=== PATIENT | male | born 1985 | race Caucasian/White ===

== ENCOUNTER 2019-06-21 02:29 | Emergency (ER) | payer BC, MEDICAID ==
[~2019-06-21] VITALS: Ht 175.3 cm; Wt 69.4 kg
--- NOTE | 2019-06-21 02:32 | NUR ---
Patient to [facility] chair to gown for evaluation. Side rails up.
[2019-06-21 02:33] VITALS: BP_SYST 143
--- NOTE | 2019-06-21 03:50 | NUR ---
ER at bedside examining patient.
--- NOTE | 2019-06-21 03:55 | NUR ---
patient brought in by [facility] for medical clearnace. patient has a history of hiv. patient has no current signs of distress. patient has a large skin abnormality on the top of the head. patients lungs are CTA. patient refused any other exam at this time. no other complaint or injury.
--- NOTE | 2019-06-21 03:56 | NUR ---
ER at bedside examining patient.
[2019-06-21 04:15] VITALS: BP_SYST 140
--- NOTE | 2019-06-21 04:20 | NUR ---
Patient given written and verbal discharge instructions and verbalizes understanding. ER MD discussed with patient the results and treatment provided. Patient in stable condition. ID arm band removed. IV catheter removed intact and dressing applied, no active bleeding. Rx of zero given. Patient educated on pain management and to follow up with PMD. Pain Scale 0/10. Opportunity for questions provided and answered. Medication side effect fact sheet provided.
== END 2019-06-21 04:20 ==
LOC: SED 02:29
DX: L98.8 Other specified disorders of the skin and subcutaneous tissue (principal); Z88.0 Allergy status to penicillin
CPT/HCPCS: 99283

== ENCOUNTER 2023-06-22 16:31 | Inpatient (IN) | payer MEDICAID ==
[~2023-06-22] VITALS: Ht 175.3 cm; Wt 67.6 kg
[~2023-06-22 16:31] MED LIST: ACET325T PO; ACYC400T19 PO; BICT1TAB3 PO; DOXY100T2 PO; HYDR-3919 PO; HYDR-3927 PO
[2023-06-22 16:35] VITALS: BP_SYST 113; PULSE 94; RESP 18; TEMP 98.1; O2SAT 100
[2023-06-22 18:02] LABS: BASOPHILS % (AUTO) 0.3 % (0.0-2.0); EOSINOPHILS # (AUTO) 0.2 K/uL (0.0-0.4); EOSINOPHILS % (AUTO) 2.7 % (0.0-4.0); HEMATOCRIT 26.3 % (36-54); LYMPHOCYTES # (AUTO) 1.7 K/uL (1.0-5.5); LYMPHOCYTES % (AUTO) 24.6 % (20.5-51.5); MEAN CORPUSCULAR HEMOGLOBIN 31 pg (27-31); MEAN CORPUSCULAR HGB CONC 34 % (32-36); MEAN CORPUSCULAR VOLUME 90 fL (79.0-98.0); MONOCYTES # (AUTO) 0.6 K/uL (0.0-1.0); MONOCYTES % (AUTO) 8.2 % (1.7-9.3); NEUTROPHILS # (AUTO) 4.5 K/uL (1.8-7.7); NEUTROPHILS % (AUTO) 64.2 % (40.0-70.0); PLATELET COUNT (AUTO) 321 K/uL (130-430); RED BLOOD CELL COUNT(AUTO) 2.93 MIL/uL (4.2-6.2); RED CELL DISTRIBUTION WIDTH 16.6 % (9.0-15.0)
[2023-06-22 18:26] LABS: ALBUMIN 2.9 g/dL (3.4-4.8); CALCIUM 8.9 mg/dL (8.4-11.0); CREATININE 0.76 mg/dL (0.55-1.30); POTASSIUM 3.7 mmol/L (3.5-5.1); TOTAL BILIRUBIN 0.2 mg/dL (0.0-1.0); TOTAL PROTEIN, SERUM 7.8 g/dL (6.4-8.3)
[2023-06-22] MEDS ORDERED: NACL 0.9% 1,000 ML IV ONE (20:00)
[2023-06-22] MEDS ORDERED: KETOROLAC TROMETHAMINE 30 MG VIAL IVP ONE (20:00)
[2023-06-22 20:15] LABS: PROTHROMBIN TIME 10.1 SECS (9.5-12.5)
[2023-06-22] MEDS ORDERED: VANCOMYCIN HCL 1,000 MG in NS 250 ML IV ONE (20:15)
[2023-06-22] MEDS ORDERED: BACITRACIN ZINC 15 GM TOPICAL OINTMENT TP ONE (20:30)
[2023-06-22] MEDS ORDERED: VANCOMYCIN HCL 1000 MG/VIAL IV ONE (20:37)
[2023-06-22] MEDS ORDERED: BACITRACIN 1 GM OINT TP ONE ×2 (20:37→21:15)
[2023-06-22 21:25] LABS: BILIRUBIN,URINE NEGATIVE (NEGATIVE); BLOOD, URINE NEGATIVE (NEGATIVE); CLARITY/URINE CLEAR (CLEAR); COLOR,URINE YELLOW (YELLOW); GLUCOSE,URINE NEGATIVE (NEGATIVE); KETONES,URINE NEGATIVE (NEGATIVE); LEUKOCYTE ESTERASE ,URINE NEGATIVE (NEGATIVE); NITRITE, URINE NEGATIVE (NEGATIVE); PROTEIN URINE TRACE (NEGATIVE); UROBILINOGEN,URINE 0.2 (0.2-1.0)
[2023-06-22 21:52] LABS: HYALINE CASTS, URINE 4 /LPF (None Seen)
[2023-06-22 21:53] LABS: BACTERIA,URINE RARE /HPF (None Seen)
[2023-06-22] MEDS ORDERED: SULF1TAB47 PO (22:06)
[2023-06-22] MEDS ORDERED: BICT1TAB PO (22:06)
[2023-06-22 23:44] VITALS: BP_SYST 111; PULSE 77; RESP 20; TEMP 97.4
[2023-06-22 23:51] VITALS: BP_SYST 111; PULSE 77; RESP 20; TEMP 97.8; O2SAT 97
[2023-06-23 00:17] VITALS: O2SAT 97
[2023-06-23 08:00] VITALS: BP_SYST 115; PULSE 101; RESP 18; TEMP 99.5; O2SAT 98
[2023-06-23] MEDS ORDERED: NALOXONE HCL 0.4 MG/ML AMP (NARCAN) IVP PRN ×2 (10:30)
[2023-06-23] MEDS ORDERED: ONDANSETRON HCL 4 MG/2 ML VIAL IVP PRN (10:30)
[2023-06-23] MEDS ORDERED: HYDROcodone/ACETAMIN 5-325 MG TAB (NORCO/ VICODIN) PO PRN ×2 (10:30)
[2023-06-23] MEDS ORDERED: ACETAMINOPHEN 325 MG TABLET PO PRN (10:30)
[2023-06-23] MEDS ORDERED: LORazepam 2 MG/ML VIAL IVP PRN (10:30)
[2023-06-23 11:00] VITALS: TEMP 99.5
[2023-06-23 12:00] VITALS: BP_SYST 113; PULSE 92; RESP 16; TEMP 98.5; O2SAT 99
[2023-06-23 12:04] LABS: BASOPHILS % (AUTO) 0.4 % (0.0-2.0); EOSINOPHILS # (AUTO) 0.3 K/uL (0.0-0.4); HEMATOCRIT 24.9 % (36-54); HEMOGLOBIN 8.4 g/dL (14.0-18.0); LYMPHOCYTES # (AUTO) 1.5 K/uL (1.0-5.5); LYMPHOCYTES % (AUTO) 27.6 % (20.5-51.5); MEAN CORPUSCULAR HEMOGLOBIN 31 pg (27-31); MEAN CORPUSCULAR HGB CONC 34 % (32-36); MEAN CORPUSCULAR VOLUME 90 fL (79.0-98.0); MONOCYTES # (AUTO) 0.4 K/uL (0.0-1.0); MONOCYTES % (AUTO) 8.5 % (1.7-9.3); NEUTROPHILS % (AUTO) 57.5 % (40.0-70.0); PLATELET COUNT (AUTO) 294 K/uL (130-430); RED BLOOD CELL COUNT(AUTO) 2.77 MIL/uL (4.2-6.2); WHITE BLOOD COUNT (AUTO) 5.3 K/uL (4.8-10.8)
[2023-06-23 12:52] LABS: CALCIUM 8.3 mg/dL (8.4-11.0); CREATININE 0.71 mg/dL (0.55-1.30); POTASSIUM 3.9 mmol/L (3.5-5.1)
[2023-06-23] MEDS ORDERED: SULFAMETHOXAZOLE/TRIMETHOPR DS 1 TABLET PO ONE (13:00)
[2023-06-23] MEDS: ACYCLOVIR 400 MG TABLET PO SCH ×2 (13:03→22:03)
[2023-06-23 16:00] VITALS: BP_SYST 110; PULSE 112; RESP 16; TEMP 98.5
[2023-06-23] MEDS: NORMAL SALINE 5 ML DISP.SYRIN IVF SCH ×2 (18:11→22:03)
[2023-06-23 20:00] VITALS: BP_SYST 121; PULSE 93; RESP 20; TEMP 98.7; O2SAT 98
[2023-06-23] MEDS ORDERED: DOXYCYCLINE HYCLATE 100 MG CAPSULE PO SCH (21:00)
[2023-06-23] MEDS: DOXYCYCLINE HYCLATE 100 MG in D5W 100 ML IV SCH (21:36)
[2023-06-24 00:52] VITALS: BP_SYST 120; PULSE 90; RESP 18; TEMP 99.1; O2SAT 98
[2023-06-24 05:39] LABS: BASOPHILS % (AUTO) 0.3 % (0.0-2.0); EOSINOPHILS # (AUTO) 0.4 K/uL (0.0-0.4); EOSINOPHILS % (AUTO) 6.8 % (0.0-4.0); HEMATOCRIT 25.1 % (36-54); HEMOGLOBIN 8.5 g/dL (14.0-18.0); LYMPHOCYTES # (AUTO) 1.5 K/uL (1.0-5.5); LYMPHOCYTES % (AUTO) 28.9 % (20.5-51.5); MEAN CORPUSCULAR HEMOGLOBIN 30 pg (27-31); MEAN CORPUSCULAR HGB CONC 34 % (32-36); MEAN CORPUSCULAR VOLUME 89 fL (79.0-98.0); MONOCYTES # (AUTO) 0.5 K/uL (0.0-1.0); MONOCYTES % (AUTO) 9.4 % (1.7-9.3); NEUTROPHILS # (AUTO) 2.8 K/uL (1.8-7.7); NEUTROPHILS % (AUTO) 54.6 % (40.0-70.0); PLATELET COUNT (AUTO) 300 K/uL (130-430); RED BLOOD CELL COUNT(AUTO) 2.81 MIL/uL (4.2-6.2); RED CELL DISTRIBUTION WIDTH 17.1 % (9.0-15.0); WHITE BLOOD COUNT (AUTO) 5.2 K/uL (4.8-10.8)
[2023-06-24] MEDS: ACYCLOVIR 400 MG TABLET PO SCH ×3 (06:27→21:29)
[2023-06-24] MEDS: NORMAL SALINE 5 ML DISP.SYRIN IVF SCH ×3 (06:28→21:29)
[2023-06-24 06:42] LABS: ALBUMIN 2.7 g/dL (3.4-4.8); CALCIUM 8.6 mg/dL (8.4-11.0); CREATININE 0.83 mg/dL (0.55-1.30); PHOSPHORUS 3.3 mg/dL (2.7-4.5); POTASSIUM 4.4 mmol/L (3.5-5.1); TOTAL BILIRUBIN 0.2 mg/dL (0.0-1.0)
[2023-06-24 08:19] VITALS: BP_SYST 122; PULSE 85; RESP 18; TEMP 98
[2023-06-24] MEDS: SULFAMETHOXAZOLE/TRIMETHOPR DS 1 TABLET PO SCH (08:57)
[2023-06-24] MEDS: DOXYCYCLINE HYCLATE 100 MG in D5W 100 ML IV SCH ×2 (08:58→21:28)
[2023-06-24 17:00] VITALS: BP_SYST 120; PULSE 82; RESP 17; TEMP 97; O2SAT 97
[2023-06-24 20:00] VITALS: BP_SYST 109; PULSE 90; RESP 18; TEMP 99.5; O2SAT 97
[2023-06-25 00:34] VITALS: BP_SYST 115; PULSE 77; RESP 18; TEMP 97.3; O2SAT 99
[2023-06-25] MEDS: ACYCLOVIR 400 MG TABLET PO SCH ×3 (06:38→21:39)
[2023-06-25] MEDS: NORMAL SALINE 5 ML DISP.SYRIN IVF SCH ×3 (06:38→21:38)
[2023-06-25 08:00] VITALS: BP_SYST 102; PULSE 82; RESP 19; TEMP 98.6; O2SAT 97
[2023-06-25] MEDS: DOXYCYCLINE HYCLATE 100 MG in D5W 100 ML IV SCH ×2 (10:07→21:38)
[2023-06-25] MEDS: SULFAMETHOXAZOLE/TRIMETHOPR DS 1 TABLET PO SCH (10:11)
[2023-06-25 12:20] LABS: BASOPHILS % (AUTO) 0.3 % (0.0-2.0); EOSINOPHILS # (AUTO) 0.3 K/uL (0.0-0.4); EOSINOPHILS % (AUTO) 5.8 % (0.0-4.0); HEMATOCRIT 29.7 % (36-54); HEMOGLOBIN 9.6 g/dL (14.0-18.0); LYMPHOCYTES % (AUTO) 35.1 % (20.5-51.5); MEAN CORPUSCULAR HEMOGLOBIN 29 pg (27-31); MEAN CORPUSCULAR HGB CONC 32 % (32-36); MEAN CORPUSCULAR VOLUME 90 fL (79.0-98.0); MONOCYTES # (AUTO) 0.5 K/uL (0.0-1.0); MONOCYTES % (AUTO) 9.2 % (1.7-9.3); NEUTROPHILS # (AUTO) 2.9 K/uL (1.8-7.7); NEUTROPHILS % (AUTO) 49.6 % (40.0-70.0); PLATELET COUNT (AUTO) 345 K/uL (130-430); RED BLOOD CELL COUNT(AUTO) 3.29 MIL/uL (4.2-6.2); RED CELL DISTRIBUTION WIDTH 16.7 % (9.0-15.0); WHITE BLOOD COUNT (AUTO) 5.8 K/uL (4.8-10.8)
[2023-06-25 12:30] VITALS: BP_SYST 110; PULSE 89; RESP 17; TEMP 98.2; O2SAT 98
[2023-06-25 12:35] LABS: CREATININE 0.88 mg/dL (0.55-1.30); POTASSIUM 4.5 mmol/L (3.5-5.1)
[2023-06-25 14:06] LABS: HEPATITIS B SURFACE AG Negative (Negative); HEPATITIS C VIRUS AB Non Reactive (Non Reactive)
[2023-06-25 16:32] VITALS: BP_SYST 112; PULSE 88; RESP 17; TEMP 97; O2SAT 99
[2023-06-25 19:00] VITALS: O2SAT 97
[2023-06-25 20:00] VITALS: BP_SYST 103; PULSE 97; RESP 18; TEMP 97.9; O2SAT 97
[2023-06-25] MEDS: SILVER SULFADIAZINE 1%, 400 GM 400 GM CREAM.GM. TP SCH (21:37)
[2023-06-26] VITALS: BP_SYST 118; PULSE 82; RESP 19; TEMP 97.7; O2SAT 98
[2023-06-26] MEDS: NORMAL SALINE 5 ML DISP.SYRIN IVF SCH ×3 (06:13→21:36)
[2023-06-26] MEDS: ACYCLOVIR 400 MG TABLET PO SCH ×3 (06:14→21:35)
[2023-06-26 08:10] VITALS: BP_SYST 102; PULSE 98; RESP 18; TEMP 97.4; O2SAT 98
[2023-06-26] MEDS: DOXYCYCLINE HYCLATE 100 MG in D5W 100 ML IV SCH ×2 (09:00→21:35)
[2023-06-26] MEDS: SULFAMETHOXAZOLE/TRIMETHOPR DS 1 TABLET PO SCH (09:00)
[2023-06-26] MEDS: SILVER SULFADIAZINE 1%, 400 GM 400 GM CREAM.GM. TP SCH ×2 (09:00→21:37)
[2023-06-26 12:00] VITALS: BP_SYST 117; PULSE 107; RESP 16; TEMP 98.8; O2SAT 98
[2023-06-26 19:00] VITALS: O2SAT 97
[2023-06-27 01:53] VITALS: BP_SYST 111; PULSE 96; RESP 18; TEMP 99.1; O2SAT 97
[2023-06-27] MEDS: ACYCLOVIR 400 MG TABLET PO SCH ×4 (05:54→21:54)
[2023-06-27] MEDS: NORMAL SALINE 5 ML DISP.SYRIN IVF SCH ×3 (05:55→21:55)
[2023-06-27 08:00] VITALS: BP_SYST 96; PULSE 76; RESP 18; TEMP 98.1; O2SAT 100; O2SAT 99
[2023-06-27] MEDS ORDERED: DOXY100T2 PO (09:53)
[2023-06-27] MEDS ORDERED: SULF1TAB48 PO (09:53)
[2023-06-27] MEDS: DOXYCYCLINE HYCLATE 100 MG in D5W 100 ML IV SCH ×2 (10:15→21:55)
[2023-06-27] MEDS: SILVER SULFADIAZINE 1%, 400 GM 400 GM CREAM.GM. TP SCH ×2 (10:16→21:55)
[2023-06-27] MEDS: SULFAMETHOXAZOLE/TRIMETHOPR DS 1 TABLET PO SCH (10:16)
[2023-06-27 11:21] LABS: BASOPHILS % (AUTO) 0.5 % (0.0-2.0); EOSINOPHILS # (AUTO) 0.3 K/uL (0.0-0.4); HEMATOCRIT 27.2 % (36-54); LYMPHOCYTES # (AUTO) 1.8 K/uL (1.0-5.5); LYMPHOCYTES % (AUTO) 30.8 % (20.5-51.5); MEAN CORPUSCULAR HEMOGLOBIN 30 pg (27-31); MEAN CORPUSCULAR HGB CONC 33 % (32-36); MEAN CORPUSCULAR VOLUME 90 fL (79.0-98.0); MONOCYTES # (AUTO) 0.5 K/uL (0.0-1.0); MONOCYTES % (AUTO) 9.2 % (1.7-9.3); NEUTROPHILS # (AUTO) 3.1 K/uL (1.8-7.7); NEUTROPHILS % (AUTO) 54.5 % (40.0-70.0); PLATELET COUNT (AUTO) 320 K/uL (130-430); RED BLOOD CELL COUNT(AUTO) 3.03 MIL/uL (4.2-6.2); RED CELL DISTRIBUTION WIDTH 16.8 % (9.0-15.0); WHITE BLOOD COUNT (AUTO) 5.7 K/uL (4.8-10.8)
[2023-06-27 11:39] LABS: CALCIUM 9.1 mg/dL (8.4-11.0); CREATININE 0.92 mg/dL (0.55-1.30); POTASSIUM 4.8 mmol/L (3.5-5.1); TOTAL BILIRUBIN 0.2 mg/dL (0.0-1.0); TOTAL PROTEIN, SERUM 7.6 g/dL (6.4-8.3)
[2023-06-27 12:00] VITALS: BP_SYST 100; PULSE 76; RESP 18; TEMP 97.6; O2SAT 100
[2023-06-27 16:00] VITALS: BP_SYST 99; PULSE 70; RESP 19; TEMP 97.5; O2SAT 99
[2023-06-27 18:06] LABS: QUANTIFERON TB GOLD Negative (Negative)
[2023-06-27 20:00] VITALS: BP_SYST 101; PULSE 110; RESP 18; TEMP 99.3; O2SAT 97
[2023-06-27 20:30] VITALS: O2SAT 97
[2023-06-28] VITALS (7 sets, daily range): BP systolic 97–112; PULSE 93–100; RESP 16–18; TEMP 97.3–99.3; O2SAT 98–99
[2023-06-28 05:35] LABS: ERYTHROCYTE SEDIMENTATION RATE 23 MM/HR (0-15)
[2023-06-28 05:47] LABS: BASOPHILS % (AUTO) 0.6 % (0.0-2.0); EOSINOPHILS # (AUTO) 0.2 K/uL (0.0-0.4); HEMATOCRIT 26.8 % (36-54); HEMOGLOBIN 8.8 g/dL (14.0-18.0); LYMPHOCYTES # (AUTO) 1.8 K/uL (1.0-5.5); LYMPHOCYTES % (AUTO) 36.5 % (20.5-51.5); MEAN CORPUSCULAR HEMOGLOBIN 30 pg (27-31); MEAN CORPUSCULAR HGB CONC 33 % (32-36); MEAN CORPUSCULAR VOLUME 90 fL (79.0-98.0); MONOCYTES # (AUTO) 0.6 K/uL (0.0-1.0); MONOCYTES % (AUTO) 11.5 % (1.7-9.3); NEUTROPHILS # (AUTO) 2.3 K/uL (1.8-7.7); NEUTROPHILS % (AUTO) 47.4 % (40.0-70.0); PLATELET COUNT (AUTO) 295 K/uL (130-430); RED BLOOD CELL COUNT(AUTO) 2.97 MIL/uL (4.2-6.2); RED CELL DISTRIBUTION WIDTH 16.8 % (9.0-15.0); WHITE BLOOD COUNT (AUTO) 4.8 K/uL (4.8-10.8)
[2023-06-28] MEDS: NORMAL SALINE 5 ML DISP.SYRIN IVF SCH ×3 (05:55→21:06)
[2023-06-28] MEDS: ACYCLOVIR 400 MG TABLET PO SCH ×3 (05:55→21:04)
[2023-06-28 05:57] LABS: CALCIUM 8.8 mg/dL (8.4-11.0); CREATININE 0.97 mg/dL (0.55-1.30); POTASSIUM 4.2 mmol/L (3.5-5.1)
[2023-06-28] MEDS: SILVER SULFADIAZINE 1%, 400 GM 400 GM CREAM.GM. TP SCH ×2 (10:25→21:07)
[2023-06-28] MEDS: SULFAMETHOXAZOLE/TRIMETHOPR DS 1 TABLET PO SCH (10:26)
[2023-06-28] MEDS: DOXYCYCLINE HYCLATE 100 MG in D5W 100 ML IV SCH ×2 (10:27→21:05)
[2023-06-29 00:05] VITALS: BP_SYST 110; PULSE 94; RESP 18; TEMP 97.8; O2SAT 98
[2023-06-29] MEDS: ACYCLOVIR 400 MG TABLET PO SCH (05:14)
[2023-06-29] MEDS: NORMAL SALINE 5 ML DISP.SYRIN IVF SCH (05:14)
[2023-06-29 06:15] LABS: ERYTHROCYTE SEDIMENTATION RATE 26 MM/HR (0-15)
[2023-06-29 06:29] LABS: BASOPHILS % (AUTO) 0.6 % (0.0-2.0); EOSINOPHILS # (AUTO) 0.2 K/uL (0.0-0.4); EOSINOPHILS % (AUTO) 5.2 % (0.0-4.0); HEMATOCRIT 26.4 % (36-54); HEMOGLOBIN 8.6 g/dL (14.0-18.0); LYMPHOCYTES # (AUTO) 1.6 K/uL (1.0-5.5); LYMPHOCYTES % (AUTO) 39.3 % (20.5-51.5); MEAN CORPUSCULAR HEMOGLOBIN 30 pg (27-31); MEAN CORPUSCULAR HGB CONC 33 % (32-36); MEAN CORPUSCULAR VOLUME 90 fL (79.0-98.0); MONOCYTES # (AUTO) 0.5 K/uL (0.0-1.0); NEUTROPHILS # (AUTO) 1.8 K/uL (1.8-7.7); NEUTROPHILS % (AUTO) 43.9 % (40.0-70.0); PLATELET COUNT (AUTO) 290 K/uL (130-430); RED BLOOD CELL COUNT(AUTO) 2.92 MIL/uL (4.2-6.2); RED CELL DISTRIBUTION WIDTH 16.9 % (9.0-15.0); WHITE BLOOD COUNT (AUTO) 4.1 K/uL (4.8-10.8)
[2023-06-29 06:58] LABS: ALBUMIN 2.7 g/dL (3.4-4.8); CALCIUM 8.6 mg/dL (8.4-11.0); CREATININE 0.88 mg/dL (0.55-1.30); POTASSIUM 4.1 mmol/L (3.5-5.1); TOTAL BILIRUBIN 0.2 mg/dL (0.0-1.0); TOTAL PROTEIN, SERUM 6.9 g/dL (6.4-8.3)
[2023-06-29 07:00] VITALS: BP_SYST 107; PULSE 99; RESP 16; TEMP 96.8; O2SAT 97
[2023-06-29 09:00] VITALS: BP_SYST 107; PULSE 99; RESP 16; TEMP 96.8; O2SAT 97
[2023-06-29] MEDS: DOXYCYCLINE HYCLATE 100 MG in D5W 100 ML IV SCH (09:14)
[2023-06-29] MEDS: SULFAMETHOXAZOLE/TRIMETHOPR DS 1 TABLET PO SCH (10:57)
[2023-06-29] MEDS: SILVER SULFADIAZINE 1%, 400 GM 400 GM CREAM.GM. TP SCH (10:58)
[2023-06-29] MEDS ORDERED: SULF1TAB47 PO (11:11)
[2023-06-29] MEDS ORDERED: BICT1TAB PO (11:11)
[2023-06-29 14:57] VITALS: BP_SYST 112; PULSE 85; RESP 18; TEMP 98.4; O2SAT 99
== END 2023-06-29 15:11 | DRG 383 ==
LOC: SED 16:31 → SMU 21:15
PROVIDERS: ADMIT Preventive Medicine Preventive Medicine/Occupational Environmental Medicine; ATTEND Preventive Medicine Preventive Medicine/Occupational Environmental Medicine
DX: L02.412 Cutaneous abscess of left axilla (principal); E44.1 Mild protein-calorie malnutrition; L02.211 Cutaneous abscess of abdominal wall; E88.09 Other disorders of plasma-protein metabolism, not elsewhere classified; D64.9 Anemia, unspecified; S31.109A Unspecified open wound of abdominal wall, unspecified quadrant without penetration into peritoneal cavity, initial encounter; D72.819 Decreased white blood cell count, unspecified; I10 Essential (primary) hypertension; L73.2 Hidradenitis suppurativa; J44.9 Chronic obstructive pulmonary disease, unspecified; R73.9 Hyperglycemia, unspecified; B95.62 Methicillin resistant Staphylococcus aureus infection as the cause of diseases classified elsewhere; X58.XXXA Exposure to other specified factors, initial encounter; Y93.89 Activity, other specified; Z59.00 Homelessness unspecified; Z86.14 Personal history of Methicillin resistant Staphylococcus aureus infection; Y92.89 Other specified places as the place of occurrence of the external cause; Y99.8 Other external cause status; Z68.22 Body mass index [BMI] 22.0-22.9, adult; Z21 Asymptomatic human immunodeficiency virus [HIV] infection status
CPT/HCPCS: 36415; 71045; 80048; 80053; 81000; 83605; 83690; 83735; 84100; 84484; 85025; 85610-TC; 85651-TC; 85730-TC; 86480; 86592; 86780; 86803; 87040; 87070-TC; 87075-TC; 87081; 87086; 87186-TC; 87340; 87536; 93005; 96361; 96365; 96375; 99285; J1885; J3370; J3490; J7060

== ENCOUNTER 2023-08-31 12:53 | Inpatient (IN) | payer MEDICAID ==
[~2023-08-31] VITALS: Ht 175.3 cm; Wt 62.1 kg
[~2023-08-31 12:53] MED LIST changes: +BICT1TAB PO; -BICT1TAB3 PO; +SULF1TAB47 PO; +SULF1TAB48 PO
[2023-08-31 12:57] VITALS: BP_SYST 110; BP_SYST 123; PULSE 113; PULSE 137; RESP 26; TEMP 105.2; TEMP 98.3; O2SAT 98
[2023-08-31] MEDS ORDERED: levETIRAcetam 1,000 MG IV BAG 100 ML IV ONE (13:15)
[2023-08-31] MEDS ORDERED: NS 1000 ML IV.SOLN IV ONE (13:15)
[2023-08-31] MEDS ORDERED: ACETAMINOPHEN 500 MG TABLET PO ONE (13:15)
[2023-08-31 13:31] LABS: BASOPHILS % (AUTO) 0.2 % (0.0-2.0); HEMATOCRIT 28.1 % (36-54); HEMOGLOBIN 9.1 g/dL (14.0-18.0); LYMPHOCYTES # (AUTO) 1.4 K/uL (1.0-5.5); LYMPHOCYTES % (AUTO) 11.9 % (20.5-51.5); MEAN CORPUSCULAR HEMOGLOBIN 29 pg (27-31); MEAN CORPUSCULAR HGB CONC 32 % (32-36); MEAN CORPUSCULAR VOLUME 89 fL (79.0-98.0); MONOCYTES # (AUTO) 0.5 K/uL (0.0-1.0); MONOCYTES % (AUTO) 4.1 % (1.7-9.3); NEUTROPHILS # (AUTO) 9.7 K/uL (1.8-7.7); NEUTROPHILS % (AUTO) 83.8 % (40.0-70.0); PLATELET COUNT (AUTO) 384 K/uL (130-430); RED BLOOD CELL COUNT(AUTO) 3.16 MIL/uL (4.2-6.2); RED CELL DISTRIBUTION WIDTH 15.5 % (9.0-15.0); WHITE BLOOD COUNT (AUTO) 11.6 K/uL (4.8-10.8)
[2023-08-31 13:47] LABS: ANION GAP 12 (5-15); CALCIUM 7.9 mg/dL (8.4-11.0); CARBON DIOXIDE 22 mmol/L (23-29); CHLORIDE 99 mmol/L (98-107); CREATININE 1.37 mg/dL (0.55-1.30); GFR AFRICAN AMERICAN 75 mL/min (>90); GLUCOSE 125 mg/dL (74-106); INR 1.1 (0.80-1.20); POTASSIUM 3.9 mmol/L (3.5-5.1); PROTHROMBIN TIME 11.6 SECS (9.5-12.5); SODIUM SERUM 133 mmol/L (136-145); UREA NITROGEN, BLOOD 10 mg/dL (8-21)
[2023-08-31 13:50] LABS: GFR NON AFRICAN-AMERICAN 62 mL/min (>90)
[2023-08-31 13:54] LABS: ALANINE AMINOTRANSFERASE 17 U/L (12-78); ALBUMIN 2.5 g/dL (3.4-4.8); ASPARTATE AMINOTRANSFERASE 18 U/L (10-37); BILIRUBIN,DIRECT 0.1 mg/dL (0.0-0.3); TOTAL BILIRUBIN 0.3 mg/dL (0.0-1.0); TOTAL PROTEIN, SERUM 7.4 g/dL (6.4-8.3)
[2023-08-31] MEDS ORDERED: VANCOMYCIN HCL 1.25 GM/NS 250 ML IV ONE (14:45)
[2023-08-31] MEDS ORDERED: cefTRIAXone 1 GM in D5W 50 ML IV ONE (14:45)
[2023-08-31] MEDS ORDERED: cefTRIAXone 1 GM VIAL ONE (15:16)
[2023-08-31 16:02] LABS: CSF APPEARANCE CLEAR (CLEAR); CSF COLOR COLORLESS (COLORLESS); CSF VOLUME 6.6 mL
[2023-08-31 16:22] LABS: CSF GLUCOSE 56 mg/dL (40-70); CSF PROTEIN 26 mg/dL (15-45)
[2023-08-31 17:02] LABS: CSF MONOCYTES 47 % (15-45); CSF NEUTROPHILS 20 % (0-6); CSF RED BLOOD CELL COUNT #1 1 /uL (0-0); CSF WHITE BLOOD CELL COUNT #1 1 /uL (0-5)
[2023-08-31 17:03] LABS: CSF LYMPHOCYTES 33 % (40-60)
[2023-08-31 17:05] LABS: BILIRUBIN,URINE NEGATIVE (NEGATIVE); BLOOD, URINE NEGATIVE (NEGATIVE); CLARITY/URINE CLEAR (CLEAR); COLOR,URINE YELLOW (YELLOW); GLUCOSE,URINE NEGATIVE (NEGATIVE); KETONES,URINE NEGATIVE (NEGATIVE); LEUKOCYTE ESTERASE ,URINE NEGATIVE (NEGATIVE); NITRITE, URINE NEGATIVE (NEGATIVE); PROTEIN URINE 1+ (NEGATIVE)
[2023-08-31 17:06] LABS: CSF MONOCYTES #4 46 % (15-45); CSF NEUTROPHILS #4 23 % (0-6); CSF RED BLOOD CELL COUNT #4 1 /uL (0-0); CSF WHITE BLOOD CELL COUNT #4 1 /uL (0-5)
[2023-08-31 17:07] LABS: CSF LYMPHOCYTES #4 31 % (40-60)
[2023-08-31 17:15] LABS: BACTERIA,URINE FEW /HPF (None Seen); HYALINE CASTS, URINE 0-10 /LPF (None Seen); OTHER CASTS, URINE WBC CASTS 1+ /LPF (None Seen); RBC,URINE 0-3 /HPF (0-3); WBC,URINE 0-3 /HPF (0-3)
[2023-08-31] MEDS ORDERED: MORPHINE 2 MG/ML INJ. SYRINGE IVP PRN ×2 (17:15)
[2023-08-31] MEDS ORDERED: POTASSIUM CHLORIDE 20 MEQ TABLET.ER PO PRN (17:15)
[2023-08-31] MEDS ORDERED: ZOLPIDEM TARTRATE 5 MG TABLET PO PRN (17:15)
[2023-08-31] MEDS ORDERED: MAGNESIUM SULFATE 50 ML IV PRN (17:15)
[2023-08-31] MEDS ORDERED: LORazepam 2 MG/ML VIAL IVP PRN (17:15)
[2023-08-31] MEDS ORDERED: ACETAMINOPHEN 500 MG TABLET PO PRN ×3 (17:15→18:00)
[2023-08-31] MEDS ORDERED: ONDANSETRON HCL 4 MG/2 ML VIAL IVP PRN (17:15)
[2023-08-31] MEDS ORDERED: DOCUSATE SODIUM 100 MG CAPSULE PO PRN (17:15)
[2023-08-31] MEDS ORDERED: MUPIROCIN 2% TOPICAL OINTMENT 22 GM NS PRN (17:15)
[2023-08-31] MEDS: NACL 0.9% 1,000 ML IV SCH (18:35)
[2023-08-31] MEDS ORDERED: SULFAMETHOXAZOLE/TRIMETHOPR DS 1 TABLET PO SCH (21:00)
[2023-08-31] MEDS ORDERED: DOXYCYCLINE HYCLATE 100 MG CAPSULE PO SCH (21:00)
[2023-08-31 22:26] VITALS: BP_SYST 116; PULSE 100; RESP 18; TEMP 99.3
[2023-08-31 22:31] VITALS: O2SAT 100
[2023-09-01] VITALS: BP_SYST 110; PULSE 115; RESP 18; TEMP 98.7; O2SAT 100
[2023-09-01] MEDS: ACYCLOVIR 400 MG TABLET PO SCH ×4 (00:30→21:31)
[2023-09-01 06:05] LABS: BASOPHILS % (AUTO) 0.1 % (0.0-2.0); EOSINOPHILS % (AUTO) 0.1 % (0.0-4.0); HEMOGLOBIN 8.6 g/dL (14.0-18.0); LYMPHOCYTES # (AUTO) 1.2 K/uL (1.0-5.5); MEAN CORPUSCULAR HEMOGLOBIN 29 pg (27-31); MEAN CORPUSCULAR HGB CONC 33 % (32-36); MEAN CORPUSCULAR VOLUME 88 fL (79.0-98.0); MONOCYTES # (AUTO) 0.6 K/uL (0.0-1.0); MONOCYTES % (AUTO) 6.5 % (1.7-9.3); NEUTROPHILS # (AUTO) 7.2 K/uL (1.8-7.7); NEUTROPHILS % (AUTO) 80.3 % (40.0-70.0); PLATELET COUNT (AUTO) 336 K/uL (130-430); RED BLOOD CELL COUNT(AUTO) 2.94 MIL/uL (4.2-6.2); RED CELL DISTRIBUTION WIDTH 15.3 % (9.0-15.0)
[2023-09-01 06:39] LABS: CALCIUM 7.5 mg/dL (8.4-11.0); CREATININE 0.97 mg/dL (0.55-1.30); POTASSIUM 3.8 mmol/L (3.5-5.1)
[2023-09-01] MEDS: NACL 0.9% 1,000 ML IV SCH ×2 (06:42→14:53)
[2023-09-01 08:26] VITALS: BP_SYST 117; PULSE 116; RESP 18; TEMP 101.4; O2SAT 97
[2023-09-01] MEDS ORDERED: HYDROcodone/ACETAMIN 5-325 MG TAB (NORCO/ VICODIN) PO PRN (09:00)
[2023-09-01] MEDS: Biktarvy 50-200-25 mg Tablet PO SCH (09:00)
[2023-09-01] MEDS: VANCOMYCIN HCL 1,000 MG in NS 250 ML IV SCH (11:19)
[2023-09-01 11:35] VITALS: BP_SYST 100; PULSE 103; RESP 16; TEMP 98.2; O2SAT 96
[2023-09-01] MEDS ORDERED: SULFAMETHOXAZOLE/TRIMETHOPR DS 1 TABLET PO ONE (12:00)
[2023-09-01] MEDS ORDERED: GADOTERATE MEGLUMINE 7.5 MMOL/15 ML VIAL IV ONE (12:29)
[2023-09-01 16:53] VITALS: BP_SYST 104; PULSE 100; RESP 17; TEMP 97.7; O2SAT 95
[2023-09-01 20:00] VITALS: BP_SYST 93; PULSE 113; RESP 18; TEMP 100.7; O2SAT 95
[2023-09-01] MEDS: CEFEPIME 2 GM in D5W 100 ML IV SCH (21:31)
[2023-09-02] VITALS (7 sets, daily range): BP systolic 92–115; PULSE 96–118; RESP 15–18; TEMP 98.1–100.4; O2SAT 94–98
[2023-09-02] MEDS: VANCOMYCIN HCL 1,000 MG in NS 250 ML IV SCH ×3 (00:26→23:01)
[2023-09-02] MEDS: NACL 0.9% 1,000 ML IV SCH ×3 (06:38→18:50)
[2023-09-02] MEDS: ACYCLOVIR 400 MG TABLET PO SCH ×3 (06:39→21:25)
[2023-09-02] MEDS ORDERED: HYDROcodone/ACETAMIN 5-325 MG TAB (NORCO/ VICODIN) PO PRN (08:30)
[2023-09-02] MEDS ORDERED: NALOXONE HCL 2 MG/2 ML SYR IVP PRN (08:30)
[2023-09-02 08:57] LABS: BASOPHILS % (AUTO) 0.3 % (0.0-2.0); EOSINOPHILS % (AUTO) 0.1 % (0.0-4.0); HEMATOCRIT 25.7 % (36-54); HEMOGLOBIN 8.5 g/dL (14.0-18.0); LYMPHOCYTES # (AUTO) 1.3 K/uL (1.0-5.5); LYMPHOCYTES % (AUTO) 14.7 % (20.5-51.5); MEAN CORPUSCULAR HEMOGLOBIN 30 pg (27-31); MEAN CORPUSCULAR HGB CONC 33 % (32-36); MEAN CORPUSCULAR VOLUME 89 fL (79.0-98.0); MONOCYTES # (AUTO) 0.5 K/uL (0.0-1.0); MONOCYTES % (AUTO) 5.9 % (1.7-9.3); NEUTROPHILS # (AUTO) 6.7 K/uL (1.8-7.7); PLATELET COUNT (AUTO) 319 K/uL (130-430); RED BLOOD CELL COUNT(AUTO) 2.87 MIL/uL (4.2-6.2); RED CELL DISTRIBUTION WIDTH 15.4 % (9.0-15.0); WHITE BLOOD COUNT (AUTO) 8.5 K/uL (4.8-10.8)
[2023-09-02 09:00] LABS: CALCIUM 7.9 mg/dL (8.4-11.0); CREATININE 1.02 mg/dL (0.55-1.30); POTASSIUM 3.9 mmol/L (3.5-5.1)
[2023-09-02] MEDS: Biktarvy 50-200-25 mg Tablet PO SCH (09:00)
[2023-09-02] MEDS: CEFEPIME 2 GM in D5W 100 ML IV SCH ×2 (09:00→21:25)
[2023-09-02] MEDS: SULFAMETHOXAZOLE/TRIMETHOPR DS 1 TABLET PO SCH (10:15)
[2023-09-03] VITALS (7 sets, daily range): BP systolic 100–109; PULSE 78–94; RESP 16; TEMP 97.8–99; O2SAT 95–100
[2023-09-03 05:36] LABS: BASOPHILS % (AUTO) 0.5 % (0.0-2.0); EOSINOPHILS # (AUTO) 0.1 K/uL (0.0-0.4); EOSINOPHILS % (AUTO) 1.8 % (0.0-4.0); HEMATOCRIT 25.7 % (36-54); HEMOGLOBIN 8.8 g/dL (14.0-18.0); LYMPHOCYTES # (AUTO) 0.9 K/uL (1.0-5.5); LYMPHOCYTES % (AUTO) 15.6 % (20.5-51.5); MEAN CORPUSCULAR HEMOGLOBIN 30 pg (27-31); MEAN CORPUSCULAR HGB CONC 34 % (32-36); MEAN CORPUSCULAR VOLUME 88 fL (79.0-98.0); MONOCYTES # (AUTO) 0.4 K/uL (0.0-1.0); MONOCYTES % (AUTO) 6.5 % (1.7-9.3); NEUTROPHILS # (AUTO) 4.5 K/uL (1.8-7.7); NEUTROPHILS % (AUTO) 75.6 % (40.0-70.0); PLATELET COUNT (AUTO) 328 K/uL (130-430); RED BLOOD CELL COUNT(AUTO) 2.93 MIL/uL (4.2-6.2); RED CELL DISTRIBUTION WIDTH 15.2 % (9.0-15.0)
[2023-09-03 05:58] LABS: CREATININE 0.86 mg/dL (0.55-1.30)
[2023-09-03] MEDS: NACL 0.9% 1,000 ML IV SCH ×2 (05:58→15:15)
[2023-09-03] MEDS: ACYCLOVIR 400 MG TABLET PO SCH ×3 (05:58→21:29)
[2023-09-03] MEDS: Biktarvy 50-200-25 mg Tablet PO SCH (09:00)
[2023-09-03] MEDS: SULFAMETHOXAZOLE/TRIMETHOPR DS 1 TABLET PO SCH (09:47)
[2023-09-03] MEDS: CEFEPIME 2 GM in D5W 100 ML IV SCH ×2 (10:27→21:21)
[2023-09-03] MEDS: VANCOMYCIN HCL 1,000 MG in NS 250 ML IV SCH ×2 (13:29→23:13)
[2023-09-04] MEDS: NACL 0.9% 1,000 ML IV SCH ×3 (01:42→21:22)
[2023-09-04 02:06] VITALS: BP_SYST 105; PULSE 70; RESP 18; TEMP 96.8; O2SAT 99
[2023-09-04] MEDS: ACYCLOVIR 400 MG TABLET PO SCH ×3 (05:34→21:22)
[2023-09-04 07:37] LABS: BASOPHILS % (AUTO) 0.5 % (0.0-2.0); EOSINOPHILS # (AUTO) 0.1 K/uL (0.0-0.4); EOSINOPHILS % (AUTO) 3.4 % (0.0-4.0); HEMATOCRIT 27.6 % (36-54); HEMOGLOBIN 9.2 g/dL (14.0-18.0); LYMPHOCYTES % (AUTO) 22.3 % (20.5-51.5); MEAN CORPUSCULAR HEMOGLOBIN 30 pg (27-31); MEAN CORPUSCULAR HGB CONC 33 % (32-36); MEAN CORPUSCULAR VOLUME 89 fL (79.0-98.0); MONOCYTES # (AUTO) 0.3 K/uL (0.0-1.0); MONOCYTES % (AUTO) 6.1 % (1.7-9.3); NEUTROPHILS # (AUTO) 2.9 K/uL (1.8-7.7); NEUTROPHILS % (AUTO) 67.7 % (40.0-70.0); PLATELET COUNT (AUTO) 403 K/uL (130-430); RED BLOOD CELL COUNT(AUTO) 3.08 MIL/uL (4.2-6.2); RED CELL DISTRIBUTION WIDTH 15.4 % (9.0-15.0); WHITE BLOOD COUNT (AUTO) 4.3 K/uL (4.8-10.8)
[2023-09-04 07:52] LABS: CALCIUM 8.3 mg/dL (8.4-11.0); CREATININE 0.75 mg/dL (0.55-1.30); POTASSIUM 4.1 mmol/L (3.5-5.1)
[2023-09-04 08:00] VITALS: O2SAT 99
[2023-09-04] MEDS: Biktarvy 50-200-25 mg Tablet PO SCH (09:00)
[2023-09-04] MEDS: SULFAMETHOXAZOLE/TRIMETHOPR DS 1 TABLET PO SCH (10:56)
[2023-09-04] MEDS: CEFEPIME 2 GM in D5W 100 ML IV SCH ×2 (10:56→20:49)
[2023-09-04 12:50] VITALS: BP_SYST 106; PULSE 88; RESP 18; TEMP 98; O2SAT 99
[2023-09-04] MEDS: VANCOMYCIN HCL 1,000 MG in NS 250 ML IV SCH ×2 (15:57→22:24)
[2023-09-04 16:54] VITALS: BP_SYST 110; PULSE 83; RESP 17; TEMP 97.7; O2SAT 98
[2023-09-04 19:00] VITALS: BP_SYST 110; PULSE 83; RESP 16; TEMP 97.7; O2SAT 98
[2023-09-04 20:00] VITALS: BP_SYST 108; PULSE 91; RESP 16; TEMP 98.9; O2SAT 98
[2023-09-05] VITALS (7 sets, daily range): BP systolic 101–122; PULSE 58–82; RESP 16–18; TEMP 97.6–98.6; O2SAT 96–98
[2023-09-05] MEDS: ACYCLOVIR 400 MG TABLET PO SCH (05:29)
[2023-09-05] MEDS: Biktarvy 50-200-25 mg Tablet PO SCH (09:00)
[2023-09-05 09:56] LABS: BASOPHILS % (AUTO) 0.5 % (0.0-2.0); EOSINOPHILS # (AUTO) 0.2 K/uL (0.0-0.4); HEMATOCRIT 29.3 % (36-54); HEMOGLOBIN 9.6 g/dL (14.0-18.0); LYMPHOCYTES # (AUTO) 0.6 K/uL (1.0-5.5); LYMPHOCYTES % (AUTO) 12.5 % (20.5-51.5); MEAN CORPUSCULAR HEMOGLOBIN 29 pg (27-31); MEAN CORPUSCULAR HGB CONC 33 % (32-36); MEAN CORPUSCULAR VOLUME 89 fL (79.0-98.0); MONOCYTES # (AUTO) 0.3 K/uL (0.0-1.0); MONOCYTES % (AUTO) 6.5 % (1.7-9.3); NEUTROPHILS # (AUTO) 3.9 K/uL (1.8-7.7); NEUTROPHILS % (AUTO) 77.5 % (40.0-70.0); PLATELET COUNT (AUTO) 485 K/uL (130-430); RED CELL DISTRIBUTION WIDTH 15.6 % (9.0-15.0); WHITE BLOOD COUNT (AUTO) 5.1 K/uL (4.8-10.8)
[2023-09-05] MEDS ORDERED: SULF1TAB48 PO (10:05)
[2023-09-05] MEDS ORDERED: HYDR-3917 PO (10:05)
[2023-09-05] MEDS ORDERED: BICT1TAB PO (10:05)
[2023-09-05 10:07] LABS: CREATININE 0.83 mg/dL (0.55-1.30); POTASSIUM 4.7 mmol/L (3.5-5.1)
[2023-09-05] MEDS: CEFEPIME 2 GM in D5W 100 ML IV SCH (10:31)
[2023-09-05] MEDS: SULFAMETHOXAZOLE/TRIMETHOPR DS 1 TABLET PO SCH (10:31)
[2023-09-05] MEDS: NACL 0.9% 1,000 ML IV SCH (10:33)
[2023-09-06 13:06] LABS: VDRL, CSF Non Reactive (Non Rea:<1:1)
== END 2023-09-05 18:30 | disposition home or self-care (01) | DRG 890 ==
LOC: SED 12:53 → STU 17:04 → SMU 22:20 → STU 22:20 → SMU 09-02 06:00
PROVIDERS: ADMIT General Practice; ATTEND General Practice
PROC: 009U3ZZ Drainage of Spinal Canal, Percutaneous Approach (ICD-10-PCS; 2023-08-31)
PROC: 4A00X4Z Measurement of Central Nervous Electrical Activity, External Approach (ICD-10-PCS; principal; 2023-09-01)
PROC: 4A00X4Z Measurement of Central Nervous Electrical Activity, External Approach (ICD-10-PCS; 2023-09-02)
DX: B20 Human immunodeficiency virus [HIV] disease (principal); A41.9 Sepsis, unspecified organism; G04.90 Encephalitis and encephalomyelitis, unspecified; N17.0 Acute kidney failure with tubular necrosis; R65.20 Severe sepsis without septic shock; J69.0 Pneumonitis due to inhalation of food and vomit; E44.0 Moderate protein-calorie malnutrition; E87.1 Hypo-osmolality and hyponatremia; D63.8 Anemia in other chronic diseases classified elsewhere; G90.8 Other disorders of autonomic nervous system; J32.4 Chronic pansinusitis; J44.9 Chronic obstructive pulmonary disease, unspecified; L73.2 Hidradenitis suppurativa; L02.412 Cutaneous abscess of left axilla; F17.200 Nicotine dependence, unspecified, uncomplicated; R56.9 Unspecified convulsions; B95.62 Methicillin resistant Staphylococcus aureus infection as the cause of diseases classified elsewhere; I10 Essential (primary) hypertension; Z59.00 Homelessness unspecified; Z91.199 Patient's noncompliance with other medical treatment and regimen due to unspecified reason; Z88.0 Allergy status to penicillin; Z79.899 Other long term (current) drug therapy; Z68.20 Body mass index [BMI] 20.0-20.9, adult
CPT/HCPCS: 36415; 70450-TC; 70553; 71045; 76376; 80048; 80076; 80202; 81000; 81001; 81015; 82947; 82962; 83037; 83605; 83735; 84157; 84484; 85025; 85048; 85610-TC; 85651-TC; 85730-TC; 86592; 86788; 86789; 87040; 87070-TC; 87075-TC; 87081; 87086; 87186-TC; 87205-TC; 87899; 89051-TC; 93005; 95816; 99291; A9575; G0378; J0692; J0696; J1953; J3370; J7050; J7060

== ENCOUNTER 2023-11-07 09:54 | Emergency (ER) | payer MEDICAID ==
[~2023-11-07] VITALS: Ht 175.3 cm; Wt 61.2 kg
[~2023-11-07 09:54] MED LIST changes: +HYDR-3917 PO
[2023-11-07 10:07] VITALS: BP_SYST 131; PULSE 97; RESP 12; TEMP 98; O2SAT 100
[2023-11-07] MEDS: predniSONE 20 MG TABLET PO ONE (10:20)
[2023-11-07] MEDS: DIPHENHYDRAMINE HCL 50 MG CAPSULE PO ONE (10:20)
[2023-11-07] MEDS ORDERED: METH-776 PO (11:09)
[2023-11-07] MEDS ORDERED: DIPH25CA83 PO (11:09)
[2023-11-07 11:21] VITALS: BP_SYST 131; PULSE 97; RESP 12; TEMP 98; O2SAT 100
== END 2023-11-07 11:17 | disposition home or self-care (01) ==
LOC: SED 09:54
DX: T78.40XA Allergy, unspecified, initial encounter (principal); R20.2 Paresthesia of skin; J44.9 Chronic obstructive pulmonary disease, unspecified; I10 Essential (primary) hypertension; F12.90 Cannabis use, unspecified, uncomplicated; Z88.0 Allergy status to penicillin; Z79.899 Other long term (current) drug therapy; X58.XXXA Exposure to other specified factors, initial encounter
CPT/HCPCS: 99283; Q0163; J7512

== ENCOUNTER 2023-12-07 22:51 | Inpatient (IN) | payer MEDICAID ==
[~2023-12-07] VITALS: Ht 175.3 cm; Wt 73.0 kg
[~2023-12-07 22:51] MED LIST changes: +DIPH25CA83 PO; +METH-776 PO
[2023-12-07 23:15] VITALS: BP_SYST 124; PULSE 133; RESP 26; TEMP 102.9; O2SAT 99
[2023-12-07] MEDS: NACL 0.9% 1,000 ML IV ONE (23:51)
[2023-12-07] MEDS ORDERED: VANCOMYCIN HCL 1000 MG/VIAL IV ONE (23:56)
[2023-12-08] MEDS: VANCOMYCIN HCL 1,000 MG in NS 250 ML IV ONE (00:01)
[2023-12-08 00:03] LABS: BASOPHILS % (AUTO) 0.3 % (0.0-2.0); HEMATOCRIT 32.1 % (36-54); LYMPHOCYTES # (AUTO) 2.2 K/uL (1.0-5.5); LYMPHOCYTES % (AUTO) 24.2 % (20.5-51.5); MEAN CORPUSCULAR HEMOGLOBIN 30 pg (27-31); MEAN CORPUSCULAR HGB CONC 34 % (32-36); MEAN CORPUSCULAR VOLUME 87 fL (79.0-98.0); MONOCYTES # (AUTO) 0.9 K/uL (0.0-1.0); MONOCYTES % (AUTO) 10.6 % (1.7-9.3); NEUTROPHILS # (AUTO) 5.8 K/uL (1.8-7.7); NEUTROPHILS % (AUTO) 64.9 % (40.0-70.0); PLATELET COUNT (AUTO) 190 K/uL (130-430); RED BLOOD CELL COUNT(AUTO) 3.69 MIL/uL (4.2-6.2); RED CELL DISTRIBUTION WIDTH 15.6 % (9.0-15.0); WHITE BLOOD COUNT (AUTO) 8.9 K/uL (4.8-10.8)
[2023-12-08] MEDS ORDERED: VANCOMYCIN HCL 1000 MG/VIAL IV ONE (00:04)
[2023-12-08 00:48] LABS: CALCIUM 8.3 mg/dL (8.4-11.0); CREATININE 1.72 mg/dL (0.55-1.30); POTASSIUM 3.4 mmol/L (3.5-5.1)
[2023-12-08 00:50] LABS: ALBUMIN 3.1 g/dL (3.4-4.8); BILIRUBIN,DIRECT 0.1 mg/dL (0.0-0.3); TOTAL BILIRUBIN 0.4 mg/dL (0.0-1.0); TOTAL PROTEIN, SERUM 8.5 g/dL (6.4-8.3)
[2023-12-08] MEDS: ACETAMINOPHEN 500 MG TABLET PO ONE (01:00)
[2023-12-08 01:24] LABS: BILIRUBIN,URINE NEGATIVE (NEGATIVE); BLOOD, URINE 3+ (NEGATIVE); CLARITY/URINE CLOUDY (CLEAR); COLOR,URINE YELLOW (YELLOW); GLUCOSE,URINE NEGATIVE (NEGATIVE); KETONES,URINE TRACE (NEGATIVE); LEUKOCYTE ESTERASE ,URINE TRACE (NEGATIVE); NITRITE, URINE NEGATIVE (NEGATIVE); PH,URINE 5.5 (5.0-8.0); PROTEIN URINE 3+ (NEGATIVE); UROBILINOGEN,URINE 0.2 (0.2-1.0)
[2023-12-08 02:09] LABS: BACTERIA,URINE FEW /HPF (None Seen)
[2023-12-08 02:13] LABS: BARBITURATE, URINE NEGATIVE (NEG <=200); BENZODIAZEPINE, URINE NEGATIVE (NEG <=150); CANNABINOID, URINE NEGATIVE (NEG <=50); COCAINE, URINE NEGATIVE (NEG <=150); METHAMPHETAMINES SCREEN,URINE POSITIVE (NEG <=500); OPIATE, URINE NEGATIVE (NEG <=100); PHENCYCLIDINE SCREEN,URINE NEGATIVE (NEG <=25); UR TRICYCLIC ANTIDEPRESSANTS NEGATIVE (NEG <=300); URINE AMPHETAMINE POSITIVE (NEG <=500); URINE METHADONE NEGATIVE (NEG <=200); URINE OXYCODONE SCREEN NEGATIVE (NEG <=100)
[2023-12-08] MEDS: cefTRIAXone 1 GM IVPB PREMIX 50 ML IV ONE (02:34)
[2023-12-08] MEDS ORDERED: AZIT-93 PO (04:29)
[2023-12-08 10:43] LABS: BASOPHILS % (AUTO) 0.3 % (0.0-2.0); EOSINOPHILS % (AUTO) 0.3 % (0.0-4.0); HEMATOCRIT 33.3 % (36-54); HEMOGLOBIN 11.2 g/dL (14.0-18.0); LYMPHOCYTES # (AUTO) 1.6 K/uL (1.0-5.5); LYMPHOCYTES % (AUTO) 25.7 % (20.5-51.5); MEAN CORPUSCULAR HEMOGLOBIN 30 pg (27-31); MEAN CORPUSCULAR HGB CONC 34 % (32-36); MEAN CORPUSCULAR VOLUME 88 fL (79.0-98.0); MONOCYTES # (AUTO) 0.5 K/uL (0.0-1.0); MONOCYTES % (AUTO) 8.5 % (1.7-9.3); NEUTROPHILS # (AUTO) 4.1 K/uL (1.8-7.7); NEUTROPHILS % (AUTO) 65.2 % (40.0-70.0); PLATELET COUNT (AUTO) 188 K/uL (130-430); RED BLOOD CELL COUNT(AUTO) 3.78 MIL/uL (4.2-6.2); RED CELL DISTRIBUTION WIDTH 15.6 % (9.0-15.0); WHITE BLOOD COUNT (AUTO) 6.3 K/uL (4.8-10.8)
[2023-12-08] MEDS ORDERED: BICT1TAB PO (10:50)
[2023-12-08] MEDS: VANCOMYCIN HCL 750 MG in NS 250 ML IV SCH (12:54)
[2023-12-08 13:02] VITALS: BP_SYST 119; PULSE 80; RESP 16; TEMP 97.6
[2023-12-08 13:46] VITALS: O2SAT 98
[2023-12-08 16:00] VITALS: BP_SYST 106; PULSE 100; RESP 16; TEMP 100.5; O2SAT 97
[2023-12-08] MEDS: ACETAMINOPHEN 325 MG TABLET PO PRN (17:45)
[2023-12-08 20:00] VITALS: BP_SYST 131; PULSE 109; RESP 18; TEMP 98.4; O2SAT 99
[2023-12-08] MEDS: cefTRIAXone 1 GM in D5W 50 ML IV SCH (20:44)
[2023-12-08] MEDS: HYDROcodone/ACETAMIN 5-325 MG TAB (NORCO/ VICODIN) PO PRN (20:44)
[2023-12-08] MEDS ORDERED: cefTRIAXone 1 GM VIAL IM SCH (21:00)
[2023-12-09] VITALS: BP_SYST 127; PULSE 102; RESP 18; TEMP 98.7; O2SAT 99
[2023-12-09 06:01] LABS: BASOPHILS % (AUTO) 0.2 % (0.0-2.0); EOSINOPHILS # (AUTO) 0.1 K/uL (0.0-0.4); EOSINOPHILS % (AUTO) 1.1 % (0.0-4.0); HEMATOCRIT 31.4 % (36-54); HEMOGLOBIN 10.6 g/dL (14.0-18.0); LYMPHOCYTES # (AUTO) 1.5 K/uL (1.0-5.5); LYMPHOCYTES % (AUTO) 29.2 % (20.5-51.5); MEAN CORPUSCULAR HEMOGLOBIN 30 pg (27-31); MEAN CORPUSCULAR HGB CONC 34 % (32-36); MEAN CORPUSCULAR VOLUME 88 fL (79.0-98.0); MONOCYTES # (AUTO) 0.3 K/uL (0.0-1.0); MONOCYTES % (AUTO) 6.1 % (1.7-9.3); NEUTROPHILS # (AUTO) 3.3 K/uL (1.8-7.7); NEUTROPHILS % (AUTO) 63.4 % (40.0-70.0); PLATELET COUNT (AUTO) 190 K/uL (130-430); RED BLOOD CELL COUNT(AUTO) 3.57 MIL/uL (4.2-6.2); RED CELL DISTRIBUTION WIDTH 15.6 % (9.0-15.0); WHITE BLOOD COUNT (AUTO) 5.2 K/uL (4.8-10.8)
[2023-12-09 06:30] LABS: POTASSIUM 3.2 mmol/L (3.5-5.1)
[2023-12-09] MEDS: CLOTRIMAZOLE 1% TOPICAL CREAM 15 GM TP SCH (07:58)
[2023-12-09 08:00] VITALS: BP_SYST 150; PULSE 98; RESP 17; TEMP 98; O2SAT 99
[2023-12-09] MEDS: Biktarvy 50-200-25 mg Tablet PO SCH (09:00)
[2023-12-09] MEDS: POTASSIUM CHLORIDE 20 MEQ TABLET.ER PO ONE (10:37)
[2023-12-09 15:30] VITALS: BP_SYST 145; PULSE 84; RESP 18; TEMP 98; O2SAT 98
[2023-12-09 16:43] VITALS: BP_SYST 140; PULSE 80; RESP 18; TEMP 98; O2SAT 98
[2023-12-09 20:00] VITALS: BP_SYST 141; PULSE 85; RESP 20; TEMP 98.1; O2SAT 96
[2023-12-09] MEDS ORDERED: cefTRIAXone 1 GM IVPB PREMIX 50 ML IV ONE (22:04)
[2023-12-09] MEDS ORDERED: VANCOMYCIN HCL 1000 MG/VIAL IV ONE (22:04)
[2023-12-10 00:11] VITALS: BP_SYST 108; PULSE 87; RESP 18; TEMP 99; O2SAT 98
[2023-12-10 08:12] VITALS: BP_SYST 109; PULSE 105; RESP 16; TEMP 97.3; O2SAT 96
[2023-12-10 12:15] VITALS: BP_SYST 104; PULSE 92; RESP 16; TEMP 97.7
[2023-12-10 16:00] VITALS: BP_SYST 102; PULSE 99; RESP 18; TEMP 99.1; O2SAT 98
[2023-12-10 21:00] VITALS: BP_SYST 102; PULSE 96; RESP 18; TEMP 98.8; O2SAT 97; O2SAT 98
[2023-12-11] VITALS: BP_SYST 100; PULSE 94; RESP 18; TEMP 98.9; O2SAT 98
[2023-12-11 07:05] LABS: BASOPHILS % (AUTO) 0.6 % (0.0-2.0); EOSINOPHILS # (AUTO) 0.1 K/uL (0.0-0.4); EOSINOPHILS % (AUTO) 1.7 % (0.0-4.0); HEMATOCRIT 31.3 % (36-54); HEMOGLOBIN 10.7 g/dL (14.0-18.0); LYMPHOCYTES # (AUTO) 1.8 K/uL (1.0-5.5); LYMPHOCYTES % (AUTO) 36.2 % (20.5-51.5); MEAN CORPUSCULAR HEMOGLOBIN 30 pg (27-31); MEAN CORPUSCULAR HGB CONC 34 % (32-36); MEAN CORPUSCULAR VOLUME 88 fL (79.0-98.0); MONOCYTES # (AUTO) 0.5 K/uL (0.0-1.0); MONOCYTES % (AUTO) 9.2 % (1.7-9.3); NEUTROPHILS # (AUTO) 2.6 K/uL (1.8-7.7); NEUTROPHILS % (AUTO) 52.3 % (40.0-70.0); PLATELET COUNT (AUTO) 233 K/uL (130-430); RED BLOOD CELL COUNT(AUTO) 3.54 MIL/uL (4.2-6.2); RED CELL DISTRIBUTION WIDTH 15.7 % (9.0-15.0); WHITE BLOOD COUNT (AUTO) 4.9 K/uL (4.8-10.8)
[2023-12-11 07:30] LABS: ALBUMIN 2.4 g/dL (3.4-4.8); CALCIUM 8.1 mg/dL (8.4-11.0); CREATININE 1.02 mg/dL (0.55-1.30); POTASSIUM 4.3 mmol/L (3.5-5.1); TOTAL BILIRUBIN 0.2 mg/dL (0.0-1.0); TOTAL PROTEIN, SERUM 7.5 g/dL (6.4-8.3)
[2023-12-11 07:50] VITALS: BP_SYST 109; PULSE 65; RESP 17; TEMP 98.1; O2SAT 100
[2023-12-11 11:25] VITALS: BP_SYST 107; PULSE 89; RESP 18; TEMP 98.7; O2SAT 97
[2023-12-11 16:37] VITALS: BP_SYST 112; PULSE 80; RESP 17; TEMP 98; O2SAT 96
[2023-12-11 19:00] VITALS: O2SAT 97
[2023-12-11 20:00] VITALS: BP_SYST 103; PULSE 99; RESP 19; TEMP 98.2; O2SAT 97
[2023-12-11 21:26] LABS: VANCOMYCIN,TROUGH 11.8 ug/mL (10.0-20.0)
[2023-12-11] MEDS: SULFAMETHOXAZOLE/TRIMETHOPR DS 1 TABLET PO SCH (22:37)
[2023-12-11] MEDS: ACYCLOVIR 400 MG TABLET PO SCH (22:38)
[2023-12-12] VITALS: BP_SYST 112; PULSE 90; RESP 18; TEMP 97.9; O2SAT 97
[2023-12-12 04:00] VITALS: BP_SYST 108; PULSE 77; RESP 18; TEMP 97.7; O2SAT 97
[2023-12-12 05:31] LABS: BASOPHILS % (AUTO) 0.4 % (0.0-2.0); EOSINOPHILS # (AUTO) 0.1 K/uL (0.0-0.4); EOSINOPHILS % (AUTO) 2.8 % (0.0-4.0); HEMATOCRIT 30.3 % (36-54); HEMOGLOBIN 10.3 g/dL (14.0-18.0); LYMPHOCYTES % (AUTO) 40.1 % (20.5-51.5); MEAN CORPUSCULAR HEMOGLOBIN 30 pg (27-31); MEAN CORPUSCULAR HGB CONC 34 % (32-36); MEAN CORPUSCULAR VOLUME 88 fL (79.0-98.0); MONOCYTES # (AUTO) 0.4 K/uL (0.0-1.0); MONOCYTES % (AUTO) 8.8 % (1.7-9.3); NEUTROPHILS # (AUTO) 2.4 K/uL (1.8-7.7); NEUTROPHILS % (AUTO) 47.9 % (40.0-70.0); PLATELET COUNT (AUTO) 242 K/uL (130-430); RED BLOOD CELL COUNT(AUTO) 3.43 MIL/uL (4.2-6.2); RED CELL DISTRIBUTION WIDTH 15.4 % (9.0-15.0); WHITE BLOOD COUNT (AUTO) 4.9 K/uL (4.8-10.8)
[2023-12-12 06:19] LABS: ALBUMIN 2.3 g/dL (3.4-4.8); CALCIUM 8.2 mg/dL (8.4-11.0); CREATININE 1.01 mg/dL (0.55-1.30); POTASSIUM 4.7 mmol/L (3.5-5.1); TOTAL BILIRUBIN 0.1 mg/dL (0.0-1.0); TOTAL PROTEIN, SERUM 7.4 g/dL (6.4-8.3)
[2023-12-12 08:00] VITALS: BP_SYST 105; PULSE 83; RESP 18; TEMP 97; O2SAT 98
[2023-12-12] MEDS: AZITHROMYCIN 250 MG TABLET PO SCH (09:01)
[2023-12-12 11:27] VITALS: BP_SYST 106; PULSE 64; RESP 16; TEMP 97.2; O2SAT 94
[2023-12-12 15:07] VITALS: BP_SYST 98; PULSE 87; RESP 16; TEMP 97.8; O2SAT 97
[2023-12-12 17:34] VITALS: BP_SYST 98; PULSE 87; RESP 16; TEMP 97.8; O2SAT 97
== END 2023-12-12 18:53 | disposition home or self-care (01) | DRG 892 ==
LOC: SED 22:51 → SMU 12-08 03:05
PROVIDERS: ADMIT Internal Medicine; ATTEND Internal Medicine
DX: L03.811 Cellulitis of head [any part, except face] (principal); B20 Human immunodeficiency virus [HIV] disease; G93.41 Metabolic encephalopathy; N39.0 Urinary tract infection, site not specified; F15.10 Other stimulant abuse, uncomplicated; I10 Essential (primary) hypertension; M25.531 Pain in right wrist; J44.9 Chronic obstructive pulmonary disease, unspecified; Z79.899 Other long term (current) drug therapy; Z79.2 Long term (current) use of antibiotics; Z88.0 Allergy status to penicillin
CPT/HCPCS: 36415; 71045; 73090; 80048; 80053; 80076; 80202; 80307; 81000; 81001; 81015; 83605; 83880; 84443; 85025; 87040; 87086; 87186; 93005; 97112-GP; 97116-GP; 99285; J0696; J3370; J7050; J7060; Q0144